=== PATIENT | male | born 2000 | race Caucasian/White ===

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

== ENCOUNTER 2021-03-02 13:18 | Emergency (ER) | payer OTHER ==
[2021-03-02 13:27] VITALS: BP 119/76; PULSE 106; TEMP 99.1; BMI 35.2
[2021-03-02] MEDS ORDERED: ONDANSETRON 4 MG/2 ML VIAL IVPUSH ONE (13:56)
[2021-03-02] MEDS ORDERED: SODIUM CHLORIDE 0.9% 500 ML INFUS.BAG IV ONE (13:57)
[2021-03-02] MEDS ORDERED: ONDANSETRON 4 MG/2 ML VIAL ONE (14:02)
[2021-03-02 14:28] LABS: HEMATOCRIT 46.5 % (35.4-49); HEMOGLOBIN 15.5 GM/dL (11.7-16.9); MCH 26.4 pg (25.7-33.7); MCHC 33.4 g/dl (32.0-35.9); MEAN CELL VOLUME 79.1 fl (80-96); MEAN PLT VOLUME 8.4 fl (7.5-11.1); PLATELET COUNT 269 10^3/uL (134-434); RBC 5.88 M/mm3 (4.00-5.60); RDW 12.8 % (11.9-15.9)
[2021-03-02 14:59] LABS: ALBUMIN 4.6 g/dl (3.4-5.0); CALCIUM 9.6 mg/dL (8.5-10.1)
[2021-03-02 15:00] LABS: BLOOD UREA NITROGEN 11.8 mg/dL (7-18)
[2021-03-02 15:04] LABS: BILIRUBIN,TOTAL 1.5 mg/dL (0.2-1); TOT PROT 8.2 g/dl (6.4-8.2)
== END 2021-03-02 16:33 | disposition home or self-care (01) ==
LOC: JER 13:18
PROC: 3E033GC Introduction of Other Therapeutic Substance into Peripheral Vein, Percutaneous Approach (ICD-10-PCS; principal; 2021-03-02)
DX: R11.2 Nausea with vomiting, unspecified (principal); K52.9 Noninfective gastroenteritis and colitis, unspecified; R19.7 Diarrhea, unspecified
CPT/HCPCS: 36415; 80053; 83690; 85025; 99284-25; C9803; U0003; U0005

== ENCOUNTER 2021-07-21 12:11 | Emergency (ER) | payer OTHER ==
[2021-07-21 12:20] VITALS: BP 155/97; PULSE 107; TEMP 97; BMI 34.9
[2021-07-21] MEDS ORDERED: SODIUM CHLORIDE 0.9% 500 ML INFUS.BAG IV ONE (12:33)
[2021-07-21 13:05] LABS: BASO % 0.5 % (0-2.0); EOS % 3.1 % (0-4.5); HEMATOCRIT 46.7 % (35.4-49); HEMOGLOBIN 15.6 GM/dL (11.7-16.9); LYMPH % 37.8 % (8-40); MCH 26.2 pg (25.7-33.7); MCHC 33.3 g/dl (32.0-35.9); MEAN CELL VOLUME 78.5 fl (80-96); MONO % 6.9 % (3.8-10.2); NEUT % 51.7 % (42.8-82.8); PLATELET COUNT 290 10^3/uL (134-434); RBC 5.94 M/mm3 (4.00-5.60); RDW 13.3 % (11.9-15.9); WHITE BLOOD COUNT 8.8 K/mm3 (4.0-10.0)
[2021-07-21 13:25] LABS: CALCIUM 9.5 mg/dL (8.5-10.1)
[2021-07-21 13:26] LABS: ALBUMIN 4.2 g/dl (3.4-5.0); MAGNESIUM 1.9 mg/dL (1.8-2.4)
[2021-07-21 13:31] LABS: BILIRUBIN,TOTAL 0.6 mg/dL (0.2-1)
== END 2021-07-21 15:46 | disposition home or self-care (01) ==
LOC: JER 12:11
DX: R00.2 Palpitations (principal)
CPT/HCPCS: 36415; 80053; 83735; 84132; 84443; 85025; 93005; 93010; 99284-25